=== PATIENT | female | born 1975 | race Caucasian/White ===

== ENCOUNTER 2024-01-09 17:54 | Emergency (ER) | payer MEDICAID ==
[~2024-01-09] VITALS: Ht 152.4 cm; Wt 75.0 kg
[2024-01-09 19:01] VITALS: TEMP 98.6; O2SAT 100
[2024-01-09] MEDS: KETOROLAC 30MG/ML VIAL IM NR (21:30)
[2024-01-09] MEDS ORDERED: NAPR-681 PO (21:47)
[2024-01-09 22:38] VITALS: BP 130/75; PULSE 105; RESP 16; O2SAT 100
== END 2024-01-09 22:40 | disposition home or self-care (01) ==
LOC: ER 17:54
DX: M25.562 Pain in left knee (principal); Z98.890 Other specified postprocedural states
CPT/HCPCS: 99283; 73562; 96372; J1885